=== PATIENT | female | born 1960 | race Caucasian/White ===

== ENCOUNTER 2018-01-28 09:33 | Outpatient (CLI) | payer OTHER | END 2018-01-28 12:19 | disposition home or self-care (01) | LOC: MAMO-SONO 09:33 | DX: Z12.31 Encounter for screening mammogram for malignant neoplasm of breast (principal); N60.12 Diffuse cystic mastopathy of left breast; N60.11 Diffuse cystic mastopathy of right breast; I11.9 Hypertensive heart disease without heart failure ==

== ENCOUNTER → 2018-01-28 11:50 | Outpatient (CLI) | payer OTHER | END | disposition home or self-care (01) | LOC: LAB 07:05 | DX: E55.9 Vitamin D deficiency, unspecified (principal); E78.89 Other lipoprotein metabolism disorders; M10.9 Gout, unspecified ==

== ENCOUNTER 2018-02-04 12:21 | Outpatient (CLI) | payer OTHER | END 2018-02-04 15:53 | disposition home or self-care (01) | LOC: RAD 501 12:21 | DX: M54.5 Low back pain (principal) ==

== ENCOUNTER 2020-11-28 12:37 | Outpatient (CLI) | payer OTHER | END 2020-11-28 13:00 | disposition home or self-care (01) | LOC: MAMO-SONO 12:37 → EDBD 12:37 → MAMO-SONO 12:45 | DX: N60.11 Diffuse cystic mastopathy of right breast (principal); N60.12 Diffuse cystic mastopathy of left breast ==

== ENCOUNTER 2020-11-30 14:59 | Outpatient (CLI) | payer OTHER | END 2020-11-30 15:09 | disposition home or self-care (01) | LOC: RAD 14:59 → EDBD 14:59 → RAD 15:09 | PROVIDERS: ATTEND Physical Medicine & Rehabilitation | DX: M54.5 Low back pain (principal); M16.11 Unilateral primary osteoarthritis, right hip ==

== ENCOUNTER 2022-01-31 08:55 | Outpatient (CLI) | payer OTHER | END 2022-01-31 09:04 | disposition home or self-care (01) | LOC: RAD 08:55 | PROVIDERS: ATTEND General Practice | DX: E11.9 Type 2 diabetes mellitus without complications (principal); M54.50 Low back pain, unspecified ==

== ENCOUNTER → 2022-02-25 | Outpatient (CLI) | payer OTHER | END | disposition home or self-care (01) | LOC: MAMO-SONO 12:43 → EDBD 12:43 | DX: Z12.31 Encounter for screening mammogram for malignant neoplasm of breast (principal); N60.11 Diffuse cystic mastopathy of right breast; N60.12 Diffuse cystic mastopathy of left breast; N64.4 Mastodynia ==

== ENCOUNTER 2022-02-28 10:05 | Outpatient (CLI) | payer OTHER | END 2022-02-28 10:10 | disposition home or self-care (01) | LOC: NUCLEAR 10:05 → EDBD 10:30 → NUCLEAR 10:30 | DX: M81.8 Other osteoporosis without current pathological fracture (principal) ==

== ENCOUNTER 2022-09-11 13:30 | Outpatient (CLI) | payer OTHER | END 2022-09-11 13:39 | disposition home or self-care (01) | LOC: RAD 13:30 | DX: M54.2 Cervicalgia (principal) ==

== ENCOUNTER 2023-03-04 11:08 | Outpatient (CLI) | payer OTHER | END 2023-03-04 11:20 | disposition home or self-care (01) | LOC: MAMO-SONO 11:08 | DX: N60.11 Diffuse cystic mastopathy of right breast (principal); N60.12 Diffuse cystic mastopathy of left breast; N64.4 Mastodynia; Z12.31 Encounter for screening mammogram for malignant neoplasm of breast ==

== ENCOUNTER 2024-05-19 10:18 | Outpatient (CLI) | payer OTHER | END 2024-05-19 10:34 | disposition home or self-care (01) | LOC: MAMO-SONO 10:18 | DX: N60.11 Diffuse cystic mastopathy of right breast (principal); N60.12 Diffuse cystic mastopathy of left breast; N64.4 Mastodynia ==